=== PATIENT | female | born 1965 | race Caucasian/White ===

== ENCOUNTER → 2019-01-14 | Outpatient (CLI) | payer BC, SELFPAY ==
[2014-01-14 16:43] VITALS: BMI 35.1
[2019-01-14 13:53] LABS: D-Dimer Quantitative (DVT/PE) 0.84 FEU/ug/m (0.27-0.49)
== END | disposition home or self-care (01) ==
LOC: LABSPEC 13:21
PROVIDERS: Family Provider Family Medicine; PCP Family Medicine; Referring Provider Family Medicine; Visit Provider Family Medicine
DX: R06.02 Shortness of breath (principal)
CPT/HCPCS: 85379

== ENCOUNTER → 2019-02-18 | Outpatient (CLI) | payer BC, SELFPAY ==
--- NOTE | 2019-02-23 09:23 | STRESSREP_ITS ---
Stress Test Report Date: 02/18/2019 Procedure: Pharmacologic stress nuclear imaging study Indications: Shortness of breath Consent: Per the patient Procedure: The patient underwent pharmacologic (Regadenoson) evaluation with a peak heart rate of 80 beats per minute (48 %predicted maximal heart rate) and a peak blood pressure of 132/74 mmHg. The baseline ECG demonstrated normal sinus rhythm nonspecific ST changes. EKG during lexiscan infusion revealed no significant change from baseline. EKG post infusion revealed no significant change from baseline [There were no cardiac dysrhythmias pretest, during pharmacologic infusion, or recovery]. [There was no complaint of chest discomfort during pharmacologic infusion or recovery]. The examination was discontinued secondary to completion of protocol. Impression: 1. Lexiscan stress test test is negative for Lexiscan infusion induced EKG changes of ischemia. 2. Lexiscan stress test test negative for Lexiscan infusion induced chest pain. 3. Results of the nuclear portion of the test is as below Myocardial perfusion imaging study: Technique: The patient was injected with 14.6 millicuries of technetium 99m Cardiolite and subsequently rest SPECT Cardiolite nuclear imaging was obtained in the horizontal long, vertical long, and short axis views. The patient underwent pharmacologic (Regadenoson) evaluation. Please see above for details. The patient was injected with 44.6 millicuries of technetium 99m Cardiolite and subsequently stress SPECT Cardiolite nuclear imaging was obtained in the horizontal long, vertical long, and short axis views. A gated Cardiolite study at peak stress was obtained. Interpretation: Rest and stress SPECT Cardiolite nuclear imaging status post realignment, normalization, and attenuation correction demonstrate mildly decreased radioisotope uptake in the apex on the rest and stress images. Gated images reveal no significant regional wall motion abnormalities. The reported LVEF is 69%. These findings are suggestive of apical thinning, a normal variant. Impression: 1. There is no evidence of significant ischemia or infarction. 2. Estimated ejection fraction is 69%. This note was generated with [employer] software. It may contain incorrect words, spelling, and punctuation that were not noted in checking the note before signing.
== END | disposition home or self-care (01) ==
PROVIDERS: Family Provider Family Medicine; PCP Family Medicine; Referring Provider Family Medicine; Visit Provider Family Medicine
DX: R06.02 Shortness of breath (principal)
CPT/HCPCS: 78452; 93017; A9500; A4216; J2785

== ENCOUNTER 2019-04-28 15:30 | Outpatient (RCR) | payer BC, SELFPAY ==
--- NOTE | 2019-04-16 11:39 | HP.OTEVAL ---
Patient's Visit Information ILIR CHERY is a 53 year old F, referred to Occupational Therapy by ELENI WALKER, with a diagnosis of left CTS s/p left CTR. Date of Evaluation: 04/16/19 Occupational Therapist: Tori Griggs, OTMeagan/Isrrael, CHT - Subjective Subjective: This 53 year old female was seen for OT eval with sx of left CTS S/P CTR on 02/10/19. pt had symptoms of CTS for two years prior to having sx. pt works at [employer]. Currently pt is reporting scar sensitivity, numbness/tingling in thumb, IF/MF and sometimes RF. pt states she has difficult time using her left hand with daily tasks due to pain and sensitivity. 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 with ADLs and IADLS by D/C Goal:: pt will demo left UE ROM equal to right by d/c to increase ind. with ADls and IADls by d/c Goal:: pt will report pain no greater than 1/10 with use of left hand with ADLs and IADls by d/c Goal:: pt will demo a decrease in scar sensitivity demo the ability to tolerate touch to left hand by d/c - Rehabilitation General Assessment: Pt is s/p 9 weeks left CTR with continued symptoms of tingling/numbness in median nerve distribution. pt demo with hypertrophic scar, scar sensitivity and decrease left men's custom hair piece consultant strength- pt would benefit from skilled OT services 2x week for 6 weeks for pt to return to PLOF- Today pt was ed. on scar mtg, desensitization, tendon glide ex, along with wrist and forearm ROM ex. once pain and scar sensitivity has decreased therapy will initiate PRE to return pt to PLOF with ADLs and IADLs. Rehabilitation Potential: Good - Anticipated Interventions Anticipated Interventions: A/AAROM/PROM, Strengthening, Scar Care, Triggerpoint Release, Desensitization, Sensory Retraining, Modalities, Joint Protection/Energy Conservation - Visit Plan Frequency: 2x /Week Duration: 6 Weeks TEXT: Thank you for the opportunity to evaluate your patient. For Medicare and Medicare HMO plans, please review the plan of care and approve it. It will need to be FAXED BACK to us at [phone] for Medicare purposes. Please let me know if there are questions or concerns regarding this plan of care. Physician Signature: Date:
--- NOTE | 2019-07-08 18:34 | HP.OTDCNRP_ITS ---
HP - Discharge Summary - Patient Information ILIR CHERY was seen in my office for initial evaluation on 04/16/19. The following Plan of Care was established for this patient: Initial Frequency: 2x /Week Initial Duration: 6 Weeks Plan: cont POC - Anticipated Interventions Anticipated Interventions: A/AAROM/PROM, Strengthening, Scar Care, Triggerpoint Release, Desensitization, Sensory Retraining, Modalities, Joint P rotection/Energy Conservation This patient was last seen in our office 04/28/19. Pertinent comments regarding their Occupational therapy will appear below: pt seen for 5 OT visits-pt progressing well had 2 no show therapy apts and no further apt scheduled at this time. Due to time laps in care pt D/C at this time. At this point I will be discontinuing this patient from occupational therapy. I would be happy to see this patient again in the future if found appropriate by the physician. Thank you! Tori Griggs, OTR/L, CHT
== END 2019-04-28 19:00 | disposition home or self-care (01) ==
LOC: OT 15:30
PROVIDERS: Family Provider Family Medicine; PCP Family Medicine
DX: G56.03 Carpal tunnel syndrome, bilateral upper limbs (principal)
CPT/HCPCS: 97035; 97110; 97140; 97166

== ENCOUNTER → 2020-05-24 09:30 | Outpatient (CLI) | payer BC, SELFPAY ==
[2020-05-17 15:05] VITALS: BMI 35.1
== END ==
PROVIDERS: PCP Family Medicine; Referring Provider Physician Assistant; Visit Provider Physician Assistant
DX: Z20.828 Contact with and (suspected) exposure to other viral communicable diseases (principal)
CPT/HCPCS: 87635; C9803; U0003

== ENCOUNTER → 2022-04-03 | Outpatient (CLI) | payer OTHER, SELFPAY ==
--- NOTE | 2022-04-03 09:52 | ECHOD_ITS ---
Reason For Study: DYSPNEA Procedure This was a 2D Doppler, Color Flow transthoracic echocardiogram. The study was technically difficult. Contrast injection was performed. Exam performed in department. Left Ventricle Based upon the 2D echocardiographic and contrast enhanced images obtained there appears to be grossly normal left ventricular size, wall motion, and systolic function. The estimated ejection fraction is 65 %. Diastolic function is indeterminate. Right Ventricle Normal RV size. Normal systolic function. Atria The left atrium is mildly enlarged. Normal right atrium. No doppler evidence for ASD. Mitral Valve There is mild mitral annular calcification. Extension of the mitral annular calcification onto the base of the posterior mitral valve leaflet. Trivial mitral valve insufficiency. Tricuspid Valve Normal tricuspid valve. Trivial tricuspid valve insufficiency. Unable to estimate RV systolic pressure/pulmonary artery pressure due to technically difficult study. Aortic Valve The aortic valve is not well visualized. Pulmonic Valve The pulmonic valve is not well visualized. Trivial pulmonic valve insufficiency. Great Vessels The aortic root is not well visualized. Pericardium/Pleural No pericardial effusion. Medication 22 gauge I.V. with prn adaptor inserted into right arm. Diluted definity 1.5ml given slow IV push to enhance endocardial definition. MMode/2D Measurements & Calculations LVIDd: 4.2 cm IVSd: 1.2 cm LAV(MOD-sp4): 59.7 ml LVIDs: 2.1 cm LVPWd: 1.4 cm RVDd: 3.1 cm FS: 49.5 % LVAd ap4: 33.8 cm2 SV(MOD-sp4): 76.2 ml SV(sp4-el): 78.2 ml LVLd ap4: 8.2 cm EDV(MOD-sp4): 114.8 ml EDV(sp4-el): 118.3 ml LVAs ap4: 17.7 cm2 LVLs ap4: 6.6 cm ESV(MOD-sp4): 38.6 ml ESV(sp4-el): 40.0 ml EF(MOD-sp4): 66.4 % EF(sp4-el): 66.2 % LA A4 area: 19.4 cm2 LA dimension(2D): 3.9 cm RA A4 area: 12.5 cm2 Time Measurements MV dec time: 0.26 sec Doppler Measurements & Calculations MV E max elijah: 72.3 cm/sec Lat Peak E' Elijah: 8.9 cm/sec Med Peak E' Elijah: 7.2 cm/sec MV A max elijah: 76.5 cm/sec E/E' lat: 8.2 E/E' med: 10.1 MV E/A: 0.95 MV V2 max: 92.1 cm/sec Ao V2 max: 148.8 cm/sec MV max P.4 mmHg MV dec slope: 278.1 cm/sec2 Ao max P.9 mmHg MV V2 mean: 58.6 cm/sec Ao V2 mean: 103.4 cm/sec MV mean P.5 mmHg Ao mean P.9 mmHg MV V2 VTI: 29.4 cm Ao V2 VTI: 32.7 cm LV V1 max: 134.9 cm/sec PA V2 max: 93.4 cm/sec LV V1 max P.3 mmHg LV V1 mean P.1 mmHg LV V1 mean: 94.8 cm/sec LV V1 VTI: 26.8 cm ECHO/Echo Complete W/ Contrast Interpretation Summary The study was technically difficult. Contrast injection was performed. Based upon the 2D echocardiographic and contrast enhanced images obtained there appears to be grossly normal left ventricular size, wall motion, and systolic function. The estimated ejection fraction is 65 %. The left atrium is mildly enlarged. There is mild mitral annular calcification. Extension of the mitral annular calcification onto the base of the posterior mi tral valve leaflet. Trivial mitral valve insufficiency. Trivial tricuspid valve insufficiency. Trivial pulmonic valve insufficiency. Unable to estimate RV systolic pressure/pulmonary artery pressure due to techni kaela difficult study. Diastolic function is indeterminate. Ordering Physician: Alec Covington Referring Physician: Alec Covington Performed By: Kassy Serrano RCS
== END | disposition home or self-care (01) ==
LOC: CVS 09:50
PROVIDERS: PCP Family Medicine; Referring Provider Internal Medicine Cardiovascular Disease; Visit Provider Internal Medicine Cardiovascular Disease
DX: R06.02 Shortness of breath (principal)
CPT/HCPCS: 93306; Q9957; A4216; C8929

== ENCOUNTER 2022-04-04 07:23 | Day surgery (SDC) | payer OTHER, SELFPAY ==
--- NOTE | 2022-03-28 12:10 | RAD_ITS ---
STUDY: X-RAY CHEST REASON FOR EXAM: Female, 56 years old. Shortness of breath TECHNIQUE: PA and lateral views of the chest. COMPARISON: January 14, 2014 x-ray FINDINGS: The lungs are clear and expanded. There is no demonstrated pleural abnormality. Normal size heart. Normal mediastinum and rula. Normal visualized pulmonary arteries. There is atherosclerotic calcification of the aortic arch with tortuosity. There are diffuse degenerative changes of the visualized thoracic spine. Normal visualized ribs, clavicles, and shoulders. There is no demonstrated abnormality of the visualized soft tissue structures of the upper abdomen. RAD/Chest PA and Lateral IMPRESSION: Stable chest. No visualized acute focal infiltrate. No demonstrated acute cardiopulmonary process. Electronically Signed: Odilia Smallwood MD at 8:05 EDT ,
[2022-03-28 12:32] LABS: Absolute Lymphocyte Count 2.13 X10^3/uL (0.83-4.51); Absolute Neutrophil Count 6.1 X10^3/uL (2.0-7.7); Basophil# 0.06 X10^3/uL; Basophil% 0.7 % (0-1); Eosinophil# 0.14 X10^3/uL; Eosinophils% 1.5 % (0-5); Hematocrit 48.3 % (37-47); Hemoglobin 15.8 g/dL (12.0-15.0); Lymphocyte # 2.13 X10^3/ul (0.83-4.51); Lymphocyte % 23.6 % (19-41); Mean Corp Hgb Conc 32.7 g/dL (32-36); Mean Corpuscular Hgb 27.8 pg (27.0-32.0); Mean Corpuscular Volume 84.9 fL (81-99); Mean Platelet Vol. 10.1 fl (6.2-12.0); Monocyte# 0.53 X10^3/uL; Monocyte% 5.9 % (0-10); NRBC Flagged by Analyzer 0 % (0-5); Neutrophil # 6.14 X10^3/uL (2.7-7.7); Neutrophil % 67.9 % (47-70); Platelet Count 256 K/mm3 (150-450); RBC Distribution Width CV 14.5 % (11.6-14.6); RBC Distribution Width SD 44.4 fl (35.1-43.9); Red Blood Count 5.69 M/mm3 (4.2-5.4)
[2022-03-28 12:48] LABS: International Normalized Ratio 0.9; Prothrombin Time (Protime)PT. 12.3 SECONDS (11.7-14.9)
[2022-03-28 13:07] LABS: Partial Thromboplast Time 33.7 Seconds (24.1-36.2)
[2022-03-28 13:16] LABS: AST(SGOT) 25 U/L (15-37); Alanine Aminotransfer ALT/SGPT 36 U/L (13-56); Albumin, Serum 3.5 g/dL (3.2-5.0); Alkaline Phosphatase 131 U/L (45-117); Anion Gap 5 (5-15); BUN 12 mg/dL (7-18); BUN/Creat Ratio 17.4 RATIO (10-20); Bilirubin, Direct < 0.05 mg/dL (0.00-0.30); Calcium,Total 9.1 mg/dL (8.5-10.1); Chloride 105 mmol/L (98-107); Cholesterol 219 mg/dL (200); Creatinine, Serum 0.69 mg/dL (0.55-1.02); EST Glomerular Filtration Rate 93 mL/min (>60); Est Glom Filt Rate - Afr Amer 113 mL/min (>60); Globulin 4.2 g/dL (2.2-4.2); Glucose 104 mg/dL (74-106); High Density Lipoprotein 39 mg/dL; Potassium 3.9 mmol/L (3.5-5.1); Protein, Total 7.7 g/dL (6.4-8.2); Sodium Level 135 mmol/L (136-145); Triglycerides 186 mg/dL; Very Low Density Lipoprotein 37 mg/dL (5-40)
--- NOTE | 2022-03-31 13:46 | HP.PCM_ITS ---
History and Physical Date of Admission: 04/04/22 [facility] [address] [place], [place] [address] OFFICE VISIT Date of Service:? 03/27/22 MR#: [id number] Acct: [id number] Name:ILIR CORTÉS Rep #: [id number] : 1965 Provider: Dr. Alec Covington MD Age/Sex:? 56/F [place] [facility] [place] Status: Signed HPI HPI History of Present Illness Surgical H&P: Yes Details: This is a 56-year-old female who presents today for outpatient cardiovascular consultation based upon concerns of shortness of breath/dyspnea on exertion and an abnormal [facility] pharmacologic stress nuclear imaging study superimposed upon a history of hyperlipidemia, hypertension, COPD/emphysema, and tobacco abuse.? She states that several years ago she was diagnosed with COPD/emphysema.? She notes that over time her breathing has become more problematic and she has become more short of breath and dyspneic with activity.? She states she minimizes going outside on hot humid days, minimizes going up and down her stairs in her home, minimizes any activity that requires any type of exertion based upon her shortness of breath and dyspnea.? She notes that she does not necessarily get ongoing chest discomfort when she becomes short of breath and dyspneic.? There is not ongoing nausea, emesis, or diaphoresis.? She has denied any near-syncope or syncope.? She states she does get intermittent swelling of her ankle area. It appears that she has undergone previous pharmacologic stress nuclear imaging study at [facility] in February 2019.? Per that report she had no obvious electrocardiographic changes and no obvious myocardial perfusion changes.? Her gated LVEF at the time was 69%. On 03-21-2022 she underwent a similar type study through the [facility] system.? According to that report she had a moderate area of ischemia in the territory of the RCA and a small fixed perfusion defect in the territory of the RCA.? 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 She states that she was referred for cardiology evaluation.? She is also been referred for further pulmonary evaluation. She did have a [facility] ECG performed on 03-05-2022.? Per the report she was in sinus rhythm with a nonspecific ST segment abnormality.? This was repeated today.? She was noted to have sinus rhythm with possible left atrial enlargement with no acute electrocardiographic changes. She states she has not had her lipid labs checked in quite some time to the best of her recollection.? Also, to the best of her recollection she has not had a chest x-ray performed in quite some time.? She does not recall ever having a transthoracic echocardiogram performed. Intake Vital Signs ? 05/17/2015:03 03/27/2215:27 03/27/2215:32 Height 5 ft 2 in 5 ft 2 in 5 ft 2 in Weight: ? ? 231 lb 6 oz BMI ? ? 42.3 BP ? ? 130/70 H Blood Pressure Location ? ? Lt brachial Position ? ? Sitting Respiration ? ? 18 Pulse ? ? 80 Pulse Source ? ?B Auscultation Intake Visit Reasons:?SOB, ABN STRESS TEST (ARMANI) Yard [employer] Required: No Accompanied by: Self Allergies aspirin [From [facility]orges[facility]] Allergy (Verified 03/27/22 15:33) Itchingcaffeine [From Norgesic] Allergy (Verified 03/27/22 15:33) Itchingorphenadrine citrate [From [facility]orges[facility]] Allergy (Verified 03/27/22 15:33) Itching Medications albuterol sulfate 90 mcg/actuation aerosol inhaler (ProAir HFA) 2 puff inhalation Q4H PRN 03/26/22 [History Confirmed 03/27/22] amlodipine 5 mg tablet 5 mg PO DAILY 03/26/22 [History Confirmed 03/27/22] budesonide-formoterol HFA 160 mcg-4.5 mcg/actuation aerosol inhaler (Symbicort) 2 puff inhalation BID 03/26/22 [History Confirmed 03/27/22] escitalopram oxalate 10 mg tablet 10 mg PO DAILY 03/26/22 [History Confirmed 03/27/22] hydrochlorothiazide 25 mg tablet 25 mg PO DAILY 03/26/22 [History Confirmed 03/27/22] lisinopril 40 mg tablet 40 mg PO DAILY 03/26/22 [History Confirmed 03/27/22] meloxicam 15 mg tablet 15 mg PO DAILY 03/26/22 [History Confirmed 03/27/22] aspirin 81 mg tablet,delayed release (Adult Low Dose Aspirin) 81 mg PO DAILY 03/27/22 [History Confirmed 03/27/22] guaifenesin 600 mg tablet, extended release 12 hr 600 mg PO BID PRN 03/27/22 [History Confirmed 03/27/22] PFSH Medical History?(Updated 03/26/22 @ 17:24 by Tori Reich) Abnormal stress test COPD (chronic obstructive pulmonary disease) Essential hypertension History of gout Hypertension Laceration of right index finger w/o foreign body w/o damage to nail Lung disease Mixed hyperlipidemia SOB (shortness of breath) Tobacco use disorder Surgical History?(Updated 03/27/22 @ 15:35 by Tori Reich) History of appendectomy History of carpal tunnel surgery History of cholecystectomy Family History?(Updated 03/27/22 @ 15:36 by Tori Reich) Father Diabetes HypertensionGrandfather CAD (coronary artery disease)Uncle Myocardial infarction CAD (coronary artery disease) Social History?(Updated 03/27/22 @ 15:36 by Tori Reich) Smoking Status:? Heavy Smoker (>10/day) alcohol intake:? current substance use type:? does not use caffeine:? Yes ROS Const Const: Positive for fatigue (I sleep alot); Negative for weakness, body ache, fever(s), headache(s), chills, frequent falls, night sweats, daytime sleepiness, difficulty sleeping, excessive sweating, weight gain, weight loss, increased appetite, poor appetite, anorexia or other Eyes Eyes: Negative for blurry vision or double vision ENT ENT: Negative for headache(s), dizziness or balance problems Cardio Chest Pain: Yes Character: tightness Onset: at rest and exercise Location: left chest Duration: brief Relieving: other (rub chest) Palpitations: No Edema: Bilateral (occasional,? ankles) Muscle aches with walking: Bilateral (detention muscle) Resp Respiratory: Positive for SOB with activity (baseline), SOB orthopnea\SOB lying down (occasional; will stack pillows x2) and wheezing (occasional); Negative for SOB at rest, Cough, Coughing up blood/hemoptysis, chest congestion, pain on inspiration, snoring, stridor, crackles, paroxysmal nocturnal dyspnea or other Musc Musc: Negative for muscle aches/ myalgia, muscle weakness, joint pain or balance problems Neuro Neuro: Positive for lightheadedness (occasional with position changes); Negative for dizziness, near syncope, syncope, orthostatic symptoms, frequent falls, headache(s), weakness, confusion, memory loss, restless legs, blurry vision, double vision, vertigo, seizures, lack of coordination or other Endo Endo: Positive for fatigue (I sleep alot); Negative for excessive sweating Cardiology Exam Const Appearance: cooperative, healthy appearing, comfortable, no acute distress, well developed and well groomed Nutritional Appearance: obese Orientation: alert, awake and oriented x3 Head Head: normal to inspection, normocephalic and atraumatic Ears: hearing grossly normal bilaterally Nose: external nose normal Face and Sinus: face symmetric Eyes Eyelids: eyelids normal Conjunctivae: conjunctivae normal Pupils: PERRL EOM: EOM intact bilaterally Neck Neck: normal visual inspection and full ROM Carotids: normal carotid upstroke Chest Chest inspection: normal inspection of the chest, symmetric chest movement and normal respiratory effort Auscultation: Bilateral: Diminished Lung Sounds Cardio Palpation: normal PMI Rate: regular rate Rhythm: regular rhythm Heart sounds: S1 normal and S2 normal GI GI: normal to inspection, soft, bowel sounds present and obese Skin Skin: no rashes or lesions noted Extremities Pulses: Normal: Right Radial Pulse and Left Radial Pulse Lower Extremity Edema: Trace: Bilateral Psych Psychological: normal affect Supplemental Info Supplemental Information Stress Test Report Date: 02/18/2019 ? Procedure: Pharmacologic stress nuclear imaging study? ? Indications: Shortness of breath ? Consent: Per the patient ? Procedure: ? The patient underwent pharmacologic (Regadenoson) evaluation with a peak heart rate of 80 beats per minute (48 %predicted maximal heart rate) and a peak blood pressure of 132/74 mmHg. ? The baseline ECG demonstrated normal sinus rhythm nonspecific ST changes.? EKG during lexiscan infusion revealed no significant change from baseline. EKG post infusion revealed no significant change from baseline ? [There were no cardiac dysrhythmias pretest, during pharmacologic infusion, or recovery]. ? [There was no complaint of chest discomfort during pharmacologic infusion or recovery]. ? The examination was discontinued secondary to completion of protocol. ? Impression: ? 1.? Lexiscan stress test test is negative for Lexiscan infusion induced EKG changes of ischemia. 2.? Lexiscan stress test test negative for Lexiscan infusion induced chest pain. 3.? Results of the nuclear portion of the test is as below ? Myocardial perfusion imaging study: ? Technique: ? The patient was injected with 14.6 millicuries of technetium 99m Cardiolite and subsequently rest SPECT Cardiolite nuclear imaging was obtained in the horizontal long, vertical long, and short axis views. The patient underwent pharmacologic (Regadenoson) evaluation.? Please see above for details. The patient was injected with 44.6 millicuries of technetium 99m Cardiolite and subsequently stress SPECT Cardiolite nuclear imaging was obtained in the horizontal long, vertical long, and short axis views.? A gated Cardiolite study at peak stress was obtained. ? Interpretation: ? Rest and stress SPECT Cardiolite nuclear imaging status post realignment, normalization, and attenuation correction demonstrate mildly decreased radioisotope uptake in the apex on the rest and stress images.? Gated images reveal no significant regional wall motion abnormalities.? The reported LVEF is 69%.? These findings are suggestive of apical thinning, a normal variant. ? Impression: ? 1.? There is no evidence of significant ischemia or infarction. 2.? Estimated ejection fraction is 69%. Labs: ?? ? No Data to Display Diagnostics: ?? ? Electrocardiogram ? Stress Test NM ? Stress Test ? Chest X-Ray ? Pulmonary: ?? ? No Data to Display Assessment and Plan Assessment and Plan (1) SOB (shortness of breath): ?Status:?Acute ?Plan: Her main concern is shortness of breath and dyspnea with exertion.? This may be an angina pectoris equivalent.? She may also have a component of her underlying history of COPD/emphysema. She has undergone noninvasive valuation as noted.? This is raise concern about the possibility of underlying CAD. At the present time it is felt reasonable to further evaluate her cardiovascular risk factors.? This would include a fasting lipid profile. It was also felt prudent to further evaluate her cardiopulmonary status.? This would include a transthoracic echocardiogram to assess her ventricular size, wall motion, and systolic function potentially estimate her right-sided pressures as well as a chest x-ray. However based upon her pharmacologic stress nuclear imaging findings it was felt prudent that she proceed with further evaluation with a diagnostic cardiac catheterization which may include a right/left cardiac cath based upon her cardiopulmonary issues.? The procedure and risk were discussed with her and she was agreeable to this approach. (2) Abnormal stress test: ?Status:?Acute ?Plan: She has undergone evaluation with a pharmacologic stress nuclear imaging study.? The results are noted above. She will proceed with further evaluation and care as noted above. (3) Mixed hyperlipidemia: ?Status:?Acute ?Plan: She will be asked to have her lipid labs checked to help with her cardiovascular risk profile. (4) Essential hypertension: ?Status:?Acute ?Plan: She will continue her antihypertensive therapy. (5) COPD (chronic obstructive pulmonary disease): ?Status:?Chronic ?Plan: She will continue to pursue her upcoming pulmonology consultation. (6) Tobacco use disorder: ?Status:?Acute ?Plan: She has been counseled on avoiding tobacco use. ? ? ? Orders: Orders 12 Lead EKG performed by [facility] Today E78.2 - Mixed hyperlipidemia, F17.200 - Nicotine dependence, unspecified, uncomplicated, I10 - Essential (primary) hypertension, R94.39 - Abnormal result of other cardiovascular function study ? Left & Right Heart Cath Today E78.2 - Mixed hyperlipidemia, F17.200 - Nicotine dependence, unspecified, uncomplicated, I10 - Essential (primary) hypertension, J44.9 - Chronic obstructive pulmonary disease, unspecified, R06.02 - Shortness of breath, R94.39 - Abnormal result of other cardiovascular function study ? Lipid Profile 1 Day E78.00 - Pure hypercholesterolemia , unspecified, E78.2 - Mixed hyperlipidemia, F17.200 - Nicotine dependence, unspecified, uncomplicated, I10 - Essential (primary) hypertension, R06.02 - Shortness of breath, R94.39 - Abnormal result of other cardiovascular function study ? Liver Profile 1 Day E78.00 - Pure hypercholesterolemia , unspecified, E78.2 - Mixed hyperlipidemia, F17.200 - Nicotine dependence, unspecified, uncomplicated, I10 - Essential (primary) hypertension, R06.02 - Shortness of breath, R94.39 - Abnormal result of other cardiovascular function study ? Echo Complete Today E78.2 - Mixed hyperlipidemia, F17.200 - Nicotine dependence, unspecified, uncomplicated, I10 - Essential (primary) hypertension, R06.02 - Shortness of breath, R94.39 - Abnormal result of other cardiovascular function study ? Chest PA and Lateral Today E78.2 - Mixed hyperlipidemia, F17.200 - Nicotine dependence, unspecified, uncomplicated, I10 - Essential (primary) hypertension, R06.02 - Shortness of breath, R94.39 - Abnormal result of other cardiovascular function study ? Basic Metabolic Profile (BMP) Today E78.2 - Mixed hyperlipidemia, F17.200 - Nicotine dependence, unspecified, uncomplicated, I10 - Essential (primary) hypertension, J44.9 - Chronic obstructive pulmonary disease, unspecified, R06.02 - Shortness of breath, R94.39 - Abnormal result of other cardiovascular function study ? Partial Thromboplast Time Today E78.2 - Mixed hyperlipidemia, F17.200 - Nicotine dependence, unspecified, uncomplicated, I10 - Essential (primary) hypertension, J44.9 - Chronic obstructive pulmonary disease, unspecified, R06.02 - Shortness of breath, R94.39 - Abnormal result of other cardiovascular function study ? Prothrombin Time w/INR Today E78.2 - Mixed hyperlipidemia, F17.200 - Nicotine dependence, unspecified, uncomplicated, I10 - Essential (primary) hypertension, J44.9 - Chronic obstructive pulmonary disease, unspecified, R06.02 - Shortness of breath, R94.39 - Abnormal result of other cardiovascular function study ? CBC W/Diff, Automated Today E78.2 - Mixed hyperlipidemia, F17.200 - Nicotine dependence, unspecified, uncomplicated, I10 - Essential (primary) hypertension, J44.9 - Chronic obstructive pulmonary disease, unspecified, R06.02 - Shortness of breath, R94.39 - Abnormal result of other cardiovascular function study ? Plan Details Additional Comments: The above was discussed with her and she was agreeable to this approach. Thank you for allowing me to participate in the care of your patient.? Please don't hesitate to call if any issues arise. This note was generated using a voice recognition system and there may be incorrect words, spelling or punctuation that were not noted when reviewing the office note prior to saving. Follow Up: ? ? 3 Months (PFM ) COVID (Procedure Consent) Procedure Criteria Procedure Criteria: Yes Elective The surgeon/proceduralist and patient have discussed in detail the risk of exposure to and/or potential harm posed by the COVID-19 virus with having a surgery/procedure at this time versus the risk of? delaying the surgery/procedure. It is not possible to know either the risk of delaying the surgery or procedure or chance of getting an infection with perfect accuracy, but a joint decision was made between the patient and the surgeon/proceduralist ?to proceed at this time with the scheduled surgery/procedure as indicated on the consent form. Coding Level of Care Code Off vis,new,level 5 Diagnoses SOB (shortness of breath)? R06.02 Abnormal stress test? R94.39 Mixed hyperlipidemia? E78.2 Essential hypertension? I10 COPD (chronic obstructive pulmonary disease)? J44.9 Tobacco use disorder? F17.200 Coding Level of Care Code Off vis,new,level 5 Diagnoses SOB (shortness of breath)? R06.02 Abnormal stress test? R94.39 Mixed hyperlipidemia? E78.2 Essential hypertension? I10 COPD (chronic obstructive pulmonary disease)? J44.9 Tobacco use disorder? F17.200 03/27/22 1646 <Electronically signed by Alec Covington MD> Date Alec Covington MD Cosigner Signature: Date (if applicable) CC:? Dr. Kd Valdez MD ~ Assessment & Plan Addt'l Comments Addendum: I have examined the patient the following changes are noted: Transthoracic echocardiogram: 04-03-2022 Interpretation Summary The study was technically difficult. Contrast injection was performed. ? Based upon the 2D echocardiographic and contrast enhanced images obtained there appears to be grossly normal left ventricular size, wall motion, and systolic function. The estimated ejection fraction is 65 %. The left atrium is mildly enlarged. There is mild mitral annular calcification. Extension of the mitral annular calcification onto the base of the posterior mitral valve leaflet. Trivial mitral valve insufficiency. Trivial tricuspid valve insufficiency. Trivial pulmonic valve insufficiency. Unable to estimate RV systolic pressure/pulmonary artery pressure due to technically difficult study. Diastolic function is indeterminate. This note was generated using a voice recognition system and there may be incorrect words, spelling or punctuation that were not noted when reviewing the office note prior to saving.
[2022-04-03 10:11] VITALS: BMI 42.2
[2022-04-04 08:55] LABS: Base Excess 1 mmol/L (-2 to +2); Bicarbonate 25.8 mmol/L (22-26); Blood Gas Specimen Type ART; PO2 67 mmHG (75-100); SO2 92 % (95-99); Total Carbon Dioxide 27 mmol/L; pH 7.37 (7.35-7.45)
[2022-04-04 09:00] LABS: Blood Gas Specimen Type VEN; VBG BASE EXCESS 1 mmol/L (-1.0-3.5); VBG Bicarbonate 26 mmol/L (22-26); VBG PO2 52 mmHg (25-40); VBG SO2 85 % (50-70); VBG TCO2 28 mmol/L (23-33); VBG pCO2 44.1 mmHg (41-51); VBG pH 7.38 (7.32-7.42)
[2022-04-04 09:00] LABS: Blood Gas Specimen Type VEN; VBG BASE EXCESS 2 mmol/L (-1.0-3.5); VBG Bicarbonate 27 mmol/L (22-26); VBG PO2 38 mmHg (25-40); VBG SO2 70 % (50-70); VBG TCO2 29 mmol/L (23-33); VBG pH 7.37 (7.32-7.42)
[2022-04-04 09:15] LABS: Blood Gas Specimen Type VEN; VBG BASE EXCESS 2 mmol/L (-1.0-3.5); VBG Bicarbonate 28 mmol/L (22-26); VBG PO2 38 mmHg (25-40); VBG SO2 66 % (50-70); VBG TCO2 30 mmol/L (23-33); VBG pCO2 53.9 mmHg (41-51); VBG pH 7.33 (7.32-7.42)
--- NOTE | 2022-04-04 09:44 | CL.D_ITS ---
Patient Name: ILIR CHERY Study Date: 04/04/2022 Performing: Alec Covington MD Ht: 61.81 inches 157 cm : 1965 Wt: 231.49 lbs 105 kg Age: 56 Gender: female BSA: 2.03 PROCEDURE(S) PERFORMED DC05-(28866)RHC/LHC/COR/LV CLINICAL PROFILE AND INDICATIONS Indications: Suspected CAD Heart Failure: None Stress/Imaging Date: 03/05/2022tress Test with SPECT MPI: Positive Intermediate Risk Angina Classification Anginal Classification w/in 2 Weeks: Anginal Equivalent Dyspnea CAD Presentations: Other: dyspnea on exertion CONCLUSIONS Right heart pressures - Normal Intracardiac shunting: None Normal Left Ventricular End Diastolic Pressure Normal LV size, wall motion,and systolic function LVEF: by LV gram 65 % Normal coronary arteries RECOMMENDATIONS Risk factor modification Medical therapy Continue outpatient follow up with PCP and Pulmonology DESCRIPTION OF PROCEDURE The patient arrived to the procedure lab. The risks and benefits of the procedure as well as a full d escription of our services here and current unavailability of surgical backup were fully explained to the patient and/or their significant other prior to the catheterization. The Timeout was completed, verifying the correct patient and procedure. The patient's procedural site was prepped and draped in the usual fashion. Local anesthetic was given subcutaneously to right brachial region with Lidocaine 2%. Local anesthetic was given subcutaneously to right radial region with Lidocaine 2%. Using a modif ied Seldinger technique, arterial access was obtained via the right radial artery, a 6Fr sheath was i nserted. Venous access was obtained via the right brachiocephalic vein, a 7Fr sheath was inserted. A 7Fr thermal dilution catheter was inserted over the swan wire and right heart pressures were recorded , it was then advanced to PA position for cardiac outputs. Thermal dilution cardiac outputs were then recorded. O2 saturations were then obtained. Simultaneous pressures were then recor ded. Left Ventriculography was performed in WEI projection using a 5 Fr. Pigtail catheter. LV to AO p ullback pressures were then recorded. The Thermal dilution catheter was then removed. Left Coronary A rtery selective angiography was performed in multiple views using a 5 Fr. 4.0 Hudson catheter. Right C oronary Artery selective angiography was then performed in multiple views using a 5 Fr. JR 4 catheter .The arterial sheath was pulled and a TR Band was applied for hemostasis-10 cc air. The venous sheath was then pulled and manual compression applied until hemostasis achieved CORONARY ANGIOGRAPHY DOMINANCE: Left Dominant LEFT HEART ASSESSMENT Left Ventricular Ejection Fraction: by LV Gram 65 % LV wall motion not assessed Normal Left Ventricular End Diastolic Pressure LVEDP: 8 mmHg RIGHT HEART ASSESSMENT Thermal CO: 5.76 Thermal CI: 2.84 Kamron CO: 17.95 Kamron CI: 8.84 PW: 04/27 4 PA: 33/0 17 RV: 28/-7 2 RA: 05/23 2 PVR: 181 SVR: 1153 Right Heart pressures - normal Intracardiac shunting: None LEFT MAIN: Angiographically normal LEFT ANTERIOR DESCENDING ARTERY: Angiographically normal CIRCUMFLEX ARTERY: Angiographically normal RAMUS: Angiographically normal RIGHT CORONARY ARTERY: Angiographically normal AORTIC ROOT: Angiographically normal COMPLICATIONS No Complications PROCEDURE MEDICATIONS Versed 1 mg IV Fentanyl 50 mcg IV Oxygen: 2 L/min via nasal cannula Oxygen: Discontinued Oxygen: 2 L/min via nasal cannula Heparin given IA 04/04/2022 09:02:44 Verapamil 2.5mg, Ntg 100mcgs, 3000 units of Heparin given IA 04/04/2022 09:02:44 SUMMARY OF HEMODYNAMIC DATA Time AIR REST ECG 07:47:23 RA 05/23 (2) SV 08:56:30 RV 28/-7, 2 08:56:47 PW 04/27 (4) PV 08:57:08 PA 33/0 (17) PA 08:57:23 LV 118/-8, 7 09:06:33 PW 11/11 (6) 09:06:33 LV 116/-7, 8 09:06:42 PW 03/26 (6) 09:06:42 LV 117/-3, 17 09:07:08 LV 123/-6, 12 09:07:18 LV 111/-5, 10 09:08:06 PW 04/28 (8) 09:08:06 LVp 113/-6, 9 09:08:26 AOp 114/66 (87) 09:08:33 PA 31/4 (20) 09:08:57 RV 26/-1, 4 09:09:09 RA 01/23 (4) 09:09:25 AO 101/67 (85) SA 09:12:38 Type SV CO (l/m) CI (l/m/ HR Time AIR REST Thermal 77.80 5.76 2.84 74 07:47:23 Kamron 242.60 17.95 8.84 74 07:47:23 Label % O2 Pres/Loc Time AIR REST AO 92 PV 09:15:22 PA 70 PA 09:15:38 IVC 85 SV 09:15:51 SVC 66 09:15:57 Signed By Alec Covington MD On 04/04/2022 09:43:40 Alec Covington MD
== END 2022-04-04 11:15 | disposition home or self-care (01) ==
LOC: CLSP 07:24
PROVIDERS: PCP Family Medicine; Referring Provider Internal Medicine Cardiovascular Disease; Visit Provider Internal Medicine Cardiovascular Disease
DX: R94.39 Abnormal result of other cardiovascular function study (principal); J44.9 Chronic obstructive pulmonary disease, unspecified; Z68.41 Body mass index [BMI] 40.0-44.9, adult; E78.2 Mixed hyperlipidemia; I10 Essential (primary) hypertension; M10.9 Gout, unspecified; F17.200 Nicotine dependence, unspecified, uncomplicated; E66.9 Obesity, unspecified
CPT/HCPCS: 36415; 71046; 80048; 80061; 80076; 82803; 85025; 85610; 85730; 93460; 99152; 99153; Q9967; C1751; C1769; C1894